=== PATIENT | male | born 1970 | race Caucasian/White ===

== ENCOUNTER → 2016-09-30 | Outpatient (CLI) | payer OTHER | LOC: KOH-I 15:19 | DX: M79.641 Pain in right hand (principal); M79.642 Pain in left hand | CPT/HCPCS: 73130 ==

== ENCOUNTER 2016-10-28 13:51 | Emergency (ER) | payer OTHER ==
[2016-10-28 15:09] LABS: HEMOGLOBIN 14.6 gm/dl (14.0-17.5); RED BLOOD COUNT 4.28 M/UL (4.20-5.50); WHITE BLOOD COUNT 5.6 K/UL (4.5-11.0)
[2016-10-28 15:36] LABS: BUN/CREATININE RATIO 15 (0-10)
== END 2016-10-28 17:43 | disposition left against medical advice (07) ==
LOC: ER1 13:51
PROVIDERS: Emergency Medicine
DX: R07.9 Chest pain, unspecified (principal)
CPT/HCPCS: 36415; 71010; 80053; 82550; 82553; 83874; 83880; 84484; 85025; 85379; 93005; 99285

== ENCOUNTER → 2016-11-05 | Outpatient (CLI) | payer OTHER | LOC: NM 10:15 | DX: R07.9 Chest pain, unspecified (principal); R06.02 Shortness of breath | CPT/HCPCS: 78452; 93017; A9502 ==

== ENCOUNTER → 2021-07-27 | Outpatient (CLI) | payer OTHER | LOC: EXRD 07-10 14:45 → HEART 5 15:00 | DX: I73.9 Peripheral vascular disease, unspecified (principal) ==